=== PATIENT | female | born 1980 | race Caucasian/White ===

== ENCOUNTER → 2018-01-16 | Outpatient (CLI) | payer BC ==
[2018-01-16 13:54] VITALS: BP 135/81; PULSE 88; RESP 16; TEMP 98.7; BMI 36.5
--- NOTE | 2018-01-16 15:01 | P.HPBAR ---
Bariatric H&P - History & Physicial H&P Date: 01/16/18 History & Physicial: Visit/CC: Having problems with band Patient initial contact: Initial weight: 11.34 kg Initial weight in pounds: 25.00 Height: 5 ft 7 in Initial BMI: 3.9 Last weight: Current weight: 105.687 kg Current weight in pounds: 233.00 Current BMI: 36.5 [place] body weight (based on NIH guidelines): 61.235 kg Excess body weight loss: The patient is a 38 year-old F who presents for Bariatric Assessment. Patient presents today for LAP-BAND follow-up. She states she's had no obstruction. Past Medical History Past Medical History: GERD/Reflux History of Any Multi-Drug Resistant Organisms: MRSA Year Discovered:: unknown MDRO Source:: lap band port site Past Surgical History: Bariatric Surgery, Orthopedic Surgery Additional Past Surgical History / Comment(s): right foot surgery, lap band 004 panniculectomy 2009 Past Anesthesia/Blood Transfusion Reactions: No Reported Reaction Smoking Status: Current every day smoker Surgical - Exam Vital Signs Temp Pulse Resp BP 98.7 F 88 16 135/81 01/16/18 13:48 01/16/18 13:48 01/16/18 13:48 01/16/18 13:48 - General well developed, no distress - Eyes PERRL - ENT normal pinna - Neck no masses - Respiratory normal expansion - Cardiovascular Rhythm: regular - Abdomen Abdomen: soft, non tender - Genitourinary normal external genitalia Bariatric Assessment & Plan Plan: LAP-BAND port malfunction. Patient LAP-BAND was accessed. There is no fluid in the band. She'll be scheduled for LAP-BAND port replacement. Bariatric Checklist Checklist: Plan: Checklist: EGD: 1. Hiatal hernia: 2. H. Pylori: HgbA1c: Vitamin D: Smoking: Current every day smoker Primary care physician referral: Psychiatry clearance: Cardiology clearance: Sleep study: Diet journal: VTE risk score: VTE risk level: Rehab needs at discharge:
== END | disposition home or self-care (01) ==
LOC: BARWHC3 13:19
PROVIDERS: ATTEND Surgery
DX: Z46.51 Encounter for fitting and adjustment of gastric lap band (principal); K95.09 Other complications of gastric band procedure; K21.9 Gastro-esophageal reflux disease without esophagitis; F17.200 Nicotine dependence, unspecified, uncomplicated; Z98.84 Bariatric surgery status; Z98.890 Other specified postprocedural states
CPT/HCPCS: 99212

== ENCOUNTER → 2018-02-06 | Outpatient (CLI) | payer BC ==
[2018-02-06 16:11] VITALS: BP 135/78; PULSE 98; RESP 16; TEMP 98.4; BMI 37.5
--- NOTE | 2018-02-06 16:36 | P.HPBAR ---
Bariatric H&P - History & Physicial H&P Date: 02/06/18 History & Physicial: Visit/CC: sleeve consult/consent/PAT lab order Patient initial contact: Initial weight: 11.34 kg Initial weight in pounds: 25.00 Height: 5 ft 7 in Initial BMI: 3.9 Last weight: Current weight: 108.908 kg Current weight in pounds: 240.10 Current BMI: 37.5 [place] body weight (based on NIH guidelines): 61.235 kg Excess body weight loss: The patient is a 38 year-old F who presents for Bariatric Assessment. The patient presents today for preoperative sleeve gastrectomy constipation. Patient has a malfunctioning LAP-BAND system due to a broken LAP-BAND port. She is off the undergo removal LAP-BAND and conversion sleeve gastrectomy. I had lengthy discussions patient regarding risks of surgery including possible gastric perforation, sleeve leak, obstruction and reflux. Patient is morbidly obese with BMI 38. Past Medical History Past Medical History: GERD/Reflux History of Any Multi-Drug Resistant Organisms: MRSA Year Discovered:: unknown MDRO Source:: lap band port site Past Surgical History: Bariatric Surgery, Orthopedic Surgery Additional Past Surgical History / Comment(s): right foot surgery, lap band 2004 panniculectomy 2009 Past Anesthesia/Blood Transfusion Reactions: No Reported Reaction Additional Past Anesthesia/Blood Transfusion Reaction / Comm: No transfusion to date Past Psychological History: No Psychological Hx Reported Smoking Status: Current every day smoker Past Alcohol Use History: None Reported Additional Past Alcohol Use History / Comment(s): 1/2 ppd x 20 years Past Drug Use History: None Reported Surgical - Exam Vital Signs Temp Pulse Resp BP 98.4 F 98 16 135/78 02/06/18 15:57 02/06/18 15:57 02/06/18 15:57 02/06/18 15:57 - General well developed, no distress - Eyes PERRL - ENT normal pinna - Neck no masses - Respiratory normal expansion - Cardiovascular Rhythm: regular - Abdomen Abdomen: soft, non tender Bariatric Assessment & Plan Plan: Status post LAP-BAND system failure. Morbid obesity. Patient will be scheduled for sleeve gastric. She'll undergo preoperative EGD. Bariatric Checklist Checklist: Plan: Checklist: EGD: 1. Hiatal hernia: 2. H. Pylori: HgbA1c: Vitamin D: Smoking: Current every day smoker Primary care physician referral: Lux Bedolla ([place]) Psychiatry clearance: Cardiology clearance: Sleep study: Diet journal: VTE risk score: VTE risk level: Rehab needs at discharge:
== END | disposition home or self-care (01) ==
LOC: BARWHC3 15:51
PROVIDERS: ATTEND Surgery
DX: Z48.815 Encounter for surgical aftercare following surgery on the digestive system (principal); E66.01 Morbid (severe) obesity due to excess calories; Z98.84 Bariatric surgery status; F17.200 Nicotine dependence, unspecified, uncomplicated; Z68.37 Body mass index [BMI] 37.0-37.9, adult
CPT/HCPCS: 99211

== ENCOUNTER 2018-02-10 10:02 | Day surgery (SDC) | payer BC ==
[2018-02-08 11:43] VITALS: BMI 37.5
[~2018-02-10 10:02] MED LIST: LACTATED RINGERS 1,000 ML IV SCH
[2018-02-10 10:27] VITALS: RESP 16; TEMP 97.7
[2018-02-10] MEDS ORDERED: LIDOCAINE 1% 20 ML VIAL (10MG/ML) FOR IV START INTRADERMA ONE (10:32)
[2018-02-10] MEDS ORDERED: PROPOFOL 10 MG/ML 20 ML VIAL IV ONE (11:29)
--- NOTE | 2018-02-10 11:35 | P.GSHP ---
History of Present Illness H&P Date: 02/10/18 Chief Complaint: GERD, morbid obesity This is a 38-year-old female who presents today for EGD. She's had issues with GERD. Patient will obesity BMI 38. Patient's upcoming conversion sleeve gastrectomy. Past Medical History Past Medical History: GERD/Reflux Additional Past Medical History / Comment(s): enlarged thryoid-no rx, occ heartburn, History of Any Multi-Drug Resistant Organisms: MRSA Date of last positivie culture/infection: unknown MDRO Source:: lap band port site Past Surgical History: Bariatric Surgery, Orthopedic Surgery Additional Past Surgical History / Comment(s): right foot surgery, lap band 2004 panniculectomy 2009 Past Anesthesia/Blood Transfusion Reactions: No Reported Reaction Additional Past Anesthesia/Blood Transfusion Reaction / Comment(s): No transfusion to date Additional Past Alcohol Use History / Comment(s): 1/2 ppd x 20 years - Past Family History Mother Family Medical History: No Reported History Medications and Allergies Home Medications Medication Instructions Recorded Confirmed Type No Known Home Medications [No 01/12/18 02/10/18 History Known Home Medications] Allergies Allergy/AdvReac Type Severity Reaction Status Date / Time No Known Allergies Allergy Verified 02/10/18 10:16 Surgical - Exam Vital Signs Temp Pulse Resp BP Pulse Ox 97.7 F 83 16 118/82 97 02/10/18 10:26 02/10/18 10:26 02/10/18 10:26 02/10/18 10:26 02/10/18 10:26 - General well developed, no distress - Eyes PERRL - ENT normal pinna - Neck no masses - Respiratory normal expansion - Cardiovascular Rhythm: regular - Abdomen Abdomen: soft, non tender Assessment and Plan Assessment: GERD, obesity. We'll perform EGD.
--- NOTE | 2018-02-10 11:41 | P.OP ---
Date of Procedure: 02/10/18 Preoperative Diagnosis: GERD, morbid obesity Postoperative Diagnosis: GERD Antral gastritis Mild obesity BMI 37 Procedure(s) Performed: EGD Anesthesia: MAC Surgeon: Mati Forde Pathology: other (Antrum) Condition: stable Disposition: PACU Description of Procedure: The patient's placed on the endoscopy table in the lateral position. She received IV sedation. The gastroscope placed oropharynx passed in the esophagus and into the stomach. Scope was then placed through the pylorus. The first and second portion of the duodenum appeared normal. The scope was then brought back the antrum and this was mildly inflamed. A biopsy was performed. Scope was unretroflexed and remainder stomach appeared normal. Patient agrees placed Yani device this was without evidence of inflammation erosion. The GE junction was at 40 cm the distal esophagus appeared mildly inflamed. The proximal esophagus appeared normal. Scope was withdrawn for patient.
[2018-02-10 12:03] VITALS: BP 122/88; PULSE 83
== END 2018-02-10 12:20 | disposition home or self-care (01) ==
LOC: ORWHC2ENDO 10:02
PROVIDERS: ATTEND Surgery
DX: K29.50 Unspecified chronic gastritis without bleeding (principal); K21.9 Gastro-esophageal reflux disease without esophagitis; E66.01 Morbid (severe) obesity due to excess calories; Z68.37 Body mass index [BMI] 37.0-37.9, adult; E04.9 Nontoxic goiter, unspecified; Z98.84 Bariatric surgery status; Z86.14 Personal history of Methicillin resistant Staphylococcus aureus infection; Z72.0 Tobacco use
CPT/HCPCS: 81025; 88305; 43239; J2704

== ENCOUNTER → 2018-02-13 | Outpatient (CLI) | payer BC ==
[2018-02-13 13:37] VITALS: BMI 37.6
== END | disposition home or self-care (01) ==
LOC: BARWHC3 08:58
PROVIDERS: ATTEND Surgery
DX: E66.01 Morbid (severe) obesity due to excess calories (principal); Z71.3 Dietary counseling and surveillance; Z68.37 Body mass index [BMI] 37.0-37.9, adult
CPT/HCPCS: 97804

== ENCOUNTER → 2018-02-13 | Outpatient (CLI) | payer BC ==
[2018-02-13 13:11] LABS: Basophils % (A) 0 %; Eosinophils # (A) 0.4 k/uL (0-0.7); Eosinophils % (A) 4 %; HGB 14.7 gm/dL (11.4-16.0); Lymphocytes # (A) 1.7 k/uL (1.0-4.8); Lymphocytes % (A) 19 %; MCH 29.7 pg (25.0-35.0); MCHC 33.5 g/dL (31.0-37.0); MCV 88.8 fL (80.0-100.0); Mean Platelet Volume 7.9; Monocytes # (A) 0.4 k/uL (0-1.0); Monocytes % (A) 4 %; Neutrophils # (A) 6.4 k/uL (1.3-7.7); Neutrophils % (A) 71 %; Platelet Count 235 k/uL (150-450); RBC 4.96 m/uL (3.80-5.40); RDW 12.8 % (11.5-15.5)
[2018-02-13 13:28] LABS: ALT 40 U/L (9-52); AST 25 U/L (14-36); Albumin 3.6 g/dL (3.5-5.0); Alkaline Phosphatase 63 U/L (38-126); Anion Gap 7 mmol/L; Blood Urea Nitrogen 9 mg/dL (7-17); Calcium 9.5 mg/dL (8.4-10.2); Carbon Dioxide 31 mmol/L (22-30); Chloride 103 mmol/L (98-107); Glucose 115 mg/dL (74-99); Sodium 141 mmol/L (137-145); Total Bilirubin 0.3 mg/dL (0.2-1.3); Total Protein 6.3 g/dL (6.3-8.2)
== END | disposition home or self-care (01) ==
LOC: LABPAT 12:39
PROVIDERS: ATTEND Surgery
DX: Z01.812 Encounter for preprocedural laboratory examination (principal)
CPT/HCPCS: 36415; 80053; 85025; 93005

== ENCOUNTER 2018-03-03 06:51 | Inpatient (IN) | payer BC ==
[~2018-03-03 06:51] MED LIST changes: +DEXAMETHASONE SOD PHOSPHATE 10 MG/ML 1 ML VIAL IV ONE; +ENOXAPARIN 40 MG/0.4 ML SYRINGE SQ ONE; +ONDANSETRON 4 MG/2 ML VIAL IVP ONE; +SCOPOLAMINE 1.5MG/72HR PATCH TRANSDERM ONE; +ceFAZolin IN SWFI 2 GM/20 ML SYRINGE IVP ONE
[2018-03-03] MEDS ORDERED: METHYLENE BLUE 30 MG in DEXTROSE 5% IN WATER 500 ML IRRIGATION ONE ×2 (07:12)
[2018-03-03] MEDS: fentaNYL (PF) 50 MCG/ML 2 ML AMP IV PRN ×4 (07:40→11:33)
[2018-03-03] MEDS: MIDAZOLAM 2 MG/2 ML VIAL IV PRN ×2 (07:40→07:56)
--- NOTE | 2018-03-03 07:49 | P.GSHP ---
History of Present Illness H&P Date: 03/03/18 Chief Complaint: Morbid obesity This is a 38-year-old female who has had lifetime process previously. Her BMI is 37. Patient has a history of LAP-BAND surgery. She has had chronic dysphagia related to her band. Resents today for removal band and conversion sleeve gastrectomy. Past Medical History Past Medical History: GERD/Reflux History of Any Multi-Drug Resistant Organisms: MRSA Date of last positivie culture/infection: unknown MDRO Source:: lap band port site Past Surgical History: Bariatric Surgery, Orthopedic Surgery Additional Past Surgical History / Comment(s): right foot surgery, lap band 2004 panniculectomy 2008 Past Anesthesia/Blood Transfusion Reactions: No Reported Reaction Additional Past Anesthesia/Blood Transfusion Reaction / Comment(s): No transfusion to date Smoking Status: Current every day smoker - Past Family History Mother Family Medical History: No Reported History Medications and Allergies Home Medications Medication Instructions Recorded Confirmed Type No Known Home Medications [No 01/12/18 03/03/18 History Known Home Medications] Allergies Allergy/AdvReac Type Severity Reaction Status Date / Time No Known Allergies Allergy Verified 03/03/18 07:05 Surgical - Exam Vital Signs Temp Pulse Resp BP Pulse Ox 992 F H 92 16 135/81 96 03/03/18 07:14 03/03/18 07:14 03/03/18 07:14 03/03/18 07:14 03/03/18 07:14 - General well developed, no distress - Eyes PERRL - ENT normal pinna - Neck no masses - Respiratory normal expansion - Cardiovascular Rhythm: regular - Abdomen Abdomen: soft, non tender Assessment and Plan Assessment: Morbid obesity with LAP-BAND dysfunction. Patient will undergo removal of LAP- BAND and conversion sleeve gastrectomy.
[2018-03-03] MEDS ORDERED: NEOSTIGMINE 1 MG/ML 10 ML VIAL ONE (07:55)
[2018-03-03] MEDS ORDERED: GLYCOPYRROLATE 0.2 MG/ML 2 ML VIAL ONE (07:55)
[2018-03-03] MEDS ORDERED: SUCCINYLCHOLINE CHLORIDE 100 MG/5 ML SYR IV ONE (07:55)
[2018-03-03] MEDS ORDERED: DEXAMETHASONE SOD PHOS (MDV) 100 MG/10 ML VIAL ONE (07:55)
[2018-03-03] MEDS ORDERED: KETOROLAC 30 MG/ML 1 ML VIAL ONE (07:55)
[2018-03-03] MEDS ORDERED: fentaNYL (PF) 50 MCG/ML 2 ML AMP ONE (07:55)
[2018-03-03] MEDS ORDERED: PROPOFOL 10 MG/ML 20 ML VIAL IV ONE (07:55)
--- NOTE | 2018-03-03 07:56 | P.ONQ ---
Anesthesiology Proc Note - PNB - Peripheral Nerve Block Performed Right Transversus Abdominis Single Procedure Start Time: 07:40 Procedure Stop Time: 07:48 Indication: Acute Post-Operative Pain Specifically requested for management of pain by DrZoila: Mati Forde Sedation Type: Sedate with meaningful contact maintained Preparation: Sterile Prep Position: Supine Needle Types: Other (see comment) (PUJUNK) Needle Size: 100mm (4") Needle Gauge: 21 Technique: Ultrasound (0,25 % ropivacaine ) Blood Aspirated: No Pain Paresthesia on Injection Noted: No Resistance on Injection: Normal (0,25 % ropivacaine 20 ml) Events: Uneventful and Well Tolerated
--- NOTE | 2018-03-03 07:58 | P.ONQ ---
Anesthesiology Proc Note - PNB - Peripheral Nerve Block Performed Left Transversus Abdominis Single Time Out Performed: Yes Procedure Start Time: 07:48 Procedure Stop Time: 07:56 Indication: Acute Post-Operative Pain Specifically requested for management of pain by DrZoila: Mati Forde Sedation Type: Sedate with meaningful contact maintained Preparation: Sterile Prep Position: Supine (Pujunk) Needle Types: Other (see comment) Needle Size: 100mm (4") Needle Gauge: 21 Technique: Ultrasound (0,25 % ropivacaine 20 ml) Blood Aspirated: No Pain Paresthesia on Injection Noted: No Resistance on Injection: Normal Events: Uneventful and Well Tolerated
[2018-03-03] MEDS ORDERED: BUPIVACAINE (PF) 0.25% 30 ML VIAL SQ ONE (08:28)
[2018-03-03] MEDS ORDERED: MORPHINE SULFATE 4MG/4ML SYRG IVP PRN ×2 (09:55→09:59)
[2018-03-03] MEDS ORDERED: NALOXONE 0.4 MG/ML 1 ML VIAL IV PRN (09:55)
[2018-03-03] MEDS ORDERED: diphenhydrAMINE 50 MG/ML 1 ML VIAL IVP PRN (09:55)
[2018-03-03] MEDS ORDERED: ONDANSETRON 4 MG/2 ML VIAL IVP PRN (09:55)
[2018-03-03] MEDS ORDERED: ONDANSETRON 4 MG/2 ML VIAL IVP ONE ×2 (10:17→10:22)
[2018-03-03] MEDS ORDERED: fentaNYL (PF) 50 MCG/ML 2 ML AMP IVP ONE (10:32)
--- NOTE | 2018-03-03 10:36 | P.OP ---
Date of Procedure: 03/03/18 Preoperative Diagnosis: Morbid obesity LAP-BAND malfunction Postoperative Diagnosis: Morbid obesity LAP-BAND malfunction Procedure(s) Performed: Laparoscopic we will LAP-BAND system Laparoscopic sleeve gastrectomy Anesthesia: JANKI Surgeon: Mati Forde Estimated Blood Loss (ml): 5 Pathology: other (LAP-BAND device) Condition: stable Disposition: PACU Description of Procedure: The patient was placed on the operating room table in the supine position. She received general anesthesia and then was placed in dorsal lithotomy position. Her abdomen was prepped and draped in sterile fashion. The skin incision sites were anesthetized 1% local Xylocaine. The patient had a LAP-BAND system. The LAP-BAND port was placed in the left epigastric position. Using an 11 blade the skin was incised and then the LAP-BAND port was dissected free from some taste tissues. The connecting tube was then cut and the port was removed. And then the skin was incised with an 11 blade in the left lateral position. Using a blade less trocar under direct visualization the peritoneal cavity was entered. The abdomen was insufflated and then a 5 mm laparoscope was placed into the peritoneal cavity. A 5 mm trocar was placed in the right epigastric, and right lateral position. A 15 mm trocar was placed in the supra-umbilical position and another 5 mm trocar was placed in the left lateral position. The left lateral lobe of the liver was retracted. The stomach was visualized. The patient LAP-BAND was visualized. The anterior gastric wall plication was taken down with sharp dissection. Care was taken to identify and preserve the stomach. The band was then withdrawn from stomach and extracted through the 15 mm trocar site. The greater curvature of the stomach was then dissected using the Harmonic scissors. The dissection occurred approximately 5 cm from the pylorus to the level of the left bo. There was no hiatal hernia seen. At this point a 40- Vincentian bougie dilator was placed the oropharynx and passed into the esophagus and into the stomach by the [employer]. The sleeve gastrectomy was performed by using the powered echelon stapler with a seam guard buttress material. Sequential firings of the stapler were performed. The gastric remnant was then brought out through the 15 mm trocar site. The dilator was withdrawn. And a orogastric tube was replaced into the stomach. The stomach was insufflated with 200 mL of methylene blue normal saline. There was no evidence of extravasation. The abdomen was irrigated there is no bleeding seen. The Uziel -Misty device was used to close the 15 mm trocar with 0 Vicryl. Skin was closed with interrupted 3-0 Monocryl sutures once the trochars withdrawn. Dermabond dressing was applied. Patient was sent to recovery in stable condition.
[2018-03-03] MEDS ORDERED: METOCLOPRAMIDE 5 MG/ML 2 ML VIAL IVP ONE (11:06)
[2018-03-03 11:32] VITALS: BMI 36.6
[2018-03-03] MEDS: ALBUTEROL NEBULIZED 2.5 MG/3 ML INHALATION SCH ×3 (12:30→19:30)
[2018-03-03] MEDS: 0.9% NACL WITH KCL 20 MEQ/L 1,000 ML IV SCH ×3 (12:47→22:16)
[2018-03-03] MEDS: AMPICILLIN-SULBACTAM 3 GM in SODIUM CHLORIDE 0.9% 100 ML IVPB SCH ×2 (12:49→17:45)
[2018-03-03] MEDS: KETOROLAC 30 MG/ML 1 ML VIAL IVP SCH ×2 (13:06→17:44)
[2018-03-03] MEDS: SIMETHICONE 40 MG/0.6 ML DROPS 2,000 MG/30 ML BOTTLE PO PRN ×2 (14:13→21:21)
[2018-03-03] MEDS: HYOSCYAMINE ORAL DROPS 1.875 MG/15 ML BOTTLE PO PRN ×2 (14:13→21:21)
--- NOTE | 2018-03-03 15:59 | CONS ---
CONSULTATION REASON FOR CONSULTATION: Advice regarding GERD and other medical issues requested by Dr. Forde. HISTORY OF PRESENT ILLNESS: This 38-year-old woman with a past history of GERD, MRSA, history of bariatric surgery being followed Dr. Fernando in [facility] admitted after laparoscopic sleeve gastrectomy and laparoscopic removal of lap band system for lap band malfunction. There is no history of fever, rigors. No headache, loss of consciousness, chest pain, palpitations, shortness of breath, hematochezia or melena at this time. PAST MEDICAL HISTORY: History of GERD, MRSA, bariatric surgery. MEDICATIONS: Prior to admission include none. ALLERGIES: None. FAMILY HISTORY: No history of heart disease or strokes in the family. SOCIAL HISTORY: History of smoking. No history of alcohol intake. REVIEW OF SYSTEMS: ENT: No diminished hearing or vision. CARDIOVASCULAR: No angina. RESPIRATORY: As mentioned earlier. GI: As mentioned earlier. : No dysuria. NERVOUS SYSTEM: No numbness or weakness. ALLERGY/IMMUNOLOGY: No asthma or hay fever. MUSCULOSKELETAL: As mentioned earlier. HEMATOLOGY/ONCOLOGY: No history of anemia. ENDOCRINE: No history of diabetes or hypothyroidism. CONSTITUTIONAL: As mentioned earlier. DERMATOLOGY: Negative. RHEUMATOLOGY: Negative. PSYCHIATRY: As mentioned earlier. PHYSICAL EXAM: Patient is alert, oriented x3. Pulse is 77, blood pressure 146/83, respiration 16, temp is normal, pulse ox 98% on 2 L. HEENT: Conjunctivae normal. Oral mucosa moist. NECK: No jugular venous distention. No carotid bruit. No lymph node enlargement. CARDIOVASCULAR: S1, S2. RESPIRATORY: Breath sounds diminished in the bases No rhonchi. No crackles. ABDOMEN: Soft, status post surgery. LEGS: No edema. NERVOUS SYSTEM: Higher functions as mentioned earlier. Moves all four limbs. No focal deficits. LYMPHATICS: No lymphadenopathy in the neck, axillae, groin. SKIN: No ulcer, rash or bleeding. LABS: At this time shows: Previous labs reviewed. Current labs not available. ASSESSMENT: 1. Status post laparoscopic sleeve gastrectomy as well as laparoscopic removal of the lap band for lap band malfunction. 2. History of gastroesophageal reflux disease. 3. History of MRSA. 4. History of bariatric surgery. 5. History of degenerative joint disease. 6. History of nicotine dependence. RECOMMENDATIONS AND DISCUSSION: This 38-year-old woman who presented with multiple medical issues at this time I recommend to continue the current medications, continue symptomatic treatment. I recommend DVT prophylaxis. Incentive spirometry. Smoking cessation advised. Closely follow up with primary physician in outpatient setting and further recommendations to follow. Will follow the patient closely. Thank you Dr. Forde, for letting us participate in the care of this patient. MMODL / IJN: [id number] /
[2018-03-03] MEDS ORDERED: METOCLOPRAMIDE 5 MG/ML 2 ML VIAL IVP PRN (16:20)
[2018-03-03] MEDS: NICOTINE 14MG/24HR PATCH TRANSDERM SCH (16:35)
[2018-03-03] MEDS: MORPHINE SULFATE 4 MG/0.8 ML SYRINGE (INJ) IVP PRN ×2 (17:51→22:24)
[2018-03-03] MEDS: FAMOTIDINE 20 MG TAB PO SCH (21:12)
[2018-03-03] MEDS: METOCLOPRAMIDE 5 MG/ML 2 ML VIAL IVP PRN (22:27)
[2018-03-04] MEDS: KETOROLAC 30 MG/ML 1 ML VIAL IVP SCH ×4 (01:23→17:41)
[2018-03-04] MEDS: 0.9% NACL WITH KCL 20 MEQ/L 1,000 ML IV SCH (04:57)
[2018-03-04] MEDS: METOCLOPRAMIDE 5 MG/ML 2 ML VIAL IVP PRN (05:34)
[2018-03-04] MEDS: SIMETHICONE 40 MG/0.6 ML DROPS 2,000 MG/30 ML BOTTLE PO PRN ×2 (05:34→18:46)
[2018-03-04] MEDS: HYOSCYAMINE ORAL DROPS 1.875 MG/15 ML BOTTLE PO PRN ×2 (05:34→22:02)
[2018-03-04] MEDS: ALBUTEROL NEBULIZED 2.5 MG/3 ML INHALATION SCH ×4 (06:50→21:11)
[2018-03-04 07:17] LABS: Basophils % (A) 0 %; Eosinophils # (A) 0.1 k/uL (0-0.7); Eosinophils % (A) 1 %; HCT 39.6 % (34.0-46.0); HGB 13.4 gm/dL (11.4-16.0); Lymphocytes # (A) 1.9 k/uL (1.0-4.8); Lymphocytes % (A) 11 %; MCH 29.7 pg (25.0-35.0); MCHC 33.8 g/dL (31.0-37.0); MCV 87.7 fL (80.0-100.0); Monocytes # (A) 1.1 k/uL (0-1.0); Monocytes % (A) 6 %; Neutrophils # (A) 13.6 k/uL (1.3-7.7); Neutrophils % (A) 80 %; Platelet Count 239 k/uL (150-450); RBC 4.51 m/uL (3.80-5.40)
[2018-03-04 07:19] LABS: Anion Gap 11 mmol/L; Blood Urea Nitrogen 17 mg/dL (7-17); Calcium 8.3 mg/dL (8.4-10.2); Carbon Dioxide 24 mmol/L (22-30); Chloride 107 mmol/L (98-107); Magnesium 1.8 mg/dL (1.6-2.3); Potassium 4.4 mmol/L (3.5-5.1); Sodium 142 mmol/L (137-145)
--- NOTE | 2018-03-04 08:40 | FL ---
EXAMINATION TYPE: FL UGI DATE OF EXAM ORDERED: 03/04/2018 8:34 AM HISTORY: The patient had her lap band removed and a gastric sleeve procedure. COMPARISON: None. FINDINGS: The patient drank contrast with ease. There was moderate holdup of contrast at the GE junc tion. There is no extravasation. The ligament of Treitz is in the normal location. There is no signif icant free air. IMPRESSION: STATUS POST GASTRIC SLEEVE PROCEDURE
[2018-03-04] MEDS ORDERED: PANTOPRAZOLE 40 MG/10 ML VIAL IV SCH (09:00)
[2018-03-04] MEDS: 1: MVI, ADULT NO.4 WITH VIT K 10 ML, THIAMINE 100 MG, FOLIC ACID 1 MG, POTASSIUM CHLORID IV SCH ×12 (09:09→18:47)
[2018-03-04] MEDS: ENOXAPARIN 40 MG/0.4 ML SYRINGE SQ SCH ×2 (09:10→22:02)
[2018-03-04] MEDS: NICOTINE 14MG/24HR PATCH TRANSDERM SCH (09:10)
[2018-03-04] MEDS: FAMOTIDINE 20 MG TAB PO SCH ×2 (09:10→22:02)
--- NOTE | 2018-03-04 12:43 | P.PN ---
Subjective Progress Note Date: 03/04/18 Patient postop day #1 gastric surgery for morbid obesity. Patient's upper GI study reveals some moderate : A contrast at the GE junction. No extravasation noted. Patient's white blood cell count today is 17. Patient is resting comfortably. Objective - Vital Signs Vital signs: Vital Signs Temp 99.5 F 03/04/18 09:00 Pulse 80 03/04/18 11:00 Resp 18 03/04/18 09:00 BP 142/91 03/04/18 09:00 Pulse Ox 97 03/04/18 10:00 Intake & Output 03/03/18 03/04/18 03/04/18 18:59 06:59 18:59 Intake Total 1500 1250 Output Total 310 Balance 1190 1250 Weight 106.141 kg Intake: IV 1500 Intake, IV Titration 1200 Amount 0.9% NaCl with KCl 20 Meq 1200 /l 1,000 ml @ 150 mls/hr IV .Q6H40M ALFRED Rx#: [id number] Oral 50 Output: Urine 300 Estimated Blood Loss 10 Other: Voiding Method Toilet Toilet # Voids 2 3 - Constitutional General appearance: Present: cooperative - Respiratory Details: Decreased breath sounds at the bases - Cardiovascular Rhythm: regular Heart sounds: normal: S1, S2 - Gastrointestinal Gastrointestinal Comment(s): Incisions clean and dry - Psychiatric Psychiatric: Present: A&O x's 3, appropriate affect, intact judgment & insight - Labs CBC & Chem 7: 03/04/18 06:40 03/04/18 06:40 Labs: Abnormal Lab Results - Last 24 Hours (Table) 03/04/18 03/04/18 Range/Units 06:40 06:40 WBC 17.0 H (3.8-10.6) k/uL Neutrophils # 13.6 H (1.3-7.7) k/uL Monocytes # 1.1 H (0-1.0) k/uL Calcium 8.3 L (8.4-10.2) mg/dL Assessment and Plan Assessment: Impression/plan: 1. Morbid obesity with lap band dysfunction status post gastric sleeve postop day #1 2. Postoperative leukocytosis 3. Moderate amount of contrast at GE junction, suspect related to postop swelling Plan: 1. IV hydration 2. Repeat CBC in a.m.
--- NOTE | 2018-03-04 13:42 | PN ---
PROGRESS NOTE DATE OF SERVICE: This 38-year-old woman was admitted after laparoscopic sleeve gastrectomy. She is complaining of heartburn last night. No chest pain. No palpitations. No fever. On exam, alert and oriented x3. Pulse 71, blood pressure 142/91, respiration 18, temperature 99.4, pulse ox 97% on room air. HEENT: Conjunctivae normal. NECK: No jugular venous distention. CARDIOVASCULAR SYSTEM: S1, S2 muffled. RESPIRATORY SYSTEM: Breath sounds diminished at the bases. No rhonchi. No crackles. ABDOMEN: Soft, status post surgery. LEGS: No edema. No swelling. NERVOUS SYSTEM: No focal deficit. LABS: WBC 17. ASSESSMENT: 1. Status post laparoscopic sleeve gastrectomy with laparoscopic removal of lap band for lap band malfunction. 2. History of gastroesophageal reflux disease. 3. Increased white count, possibly reactive. 4. History of methicillin-resistant Staphylococcus aeruginosa. 5. History of bariatric surgery. 6. History of degenerative joint disease. 7. History of nicotine dependence. RECOMMENDATIONS AND DISCUSSION: I recommend to continue current medications, continue symptomatic treatment. Proton pump inhibitors. DVT prophylaxis. Continue the rest of the medications. Closely follow with Surgery. Further recommendations to follow. MMODL / IJN: [id number] /
[2018-03-04 16:54] LABS: Glucose,Whole Blood 110 mg/dL (75-99)
[2018-03-04 17:19] VITALS: RESP 16
[2018-03-04] MEDS: MORPHINE SULFATE 4 MG/0.8 ML SYRINGE (INJ) IVP PRN (18:46)
[2018-03-04] MEDS: PANTOPRAZOLE 40 MG/10 ML VIAL IV SCH (22:03)
[2018-03-05] MEDS: KETOROLAC 30 MG/ML 1 ML VIAL IVP SCH ×2 (01:17→06:17)
[2018-03-05] MEDS: 1: MVI, ADULT NO.4 WITH VIT K 10 ML, THIAMINE 100 MG, FOLIC ACID 1 MG, POTASSIUM CHLORID IV SCH ×6 (06:17)
[2018-03-05 06:42] LABS: Glucose,Whole Blood 92 mg/dL (75-99)
[2018-03-05 07:20] LABS: Basophils % (A) 0 %; Eosinophils # (A) 0.3 k/uL (0-0.7); Eosinophils % (A) 3 %; HCT 34.4 % (34.0-46.0); HGB 11.7 gm/dL (11.4-16.0); Lymphocytes # (A) 1.8 k/uL (1.0-4.8); Lymphocytes % (A) 19 %; MCH 29.9 pg (25.0-35.0); Mean Platelet Volume 8.7; Monocytes # (A) 0.6 k/uL (0-1.0); Monocytes % (A) 6 %; Neutrophils # (A) 6.7 k/uL (1.3-7.7); Neutrophils % (A) 70 %; Platelet Count 167 k/uL (150-450); RBC 3.91 m/uL (3.80-5.40); WBC 9.6 k/uL (3.8-10.6)
[2018-03-05] MEDS ORDERED: MORPHINE ORAL SOLN 10 MG/5 ML CUP PO PRN (07:38)
[2018-03-05 08:11] VITALS: BP 120/74; TEMP 98.5
[2018-03-05] MEDS: ALBUTEROL NEBULIZED 2.5 MG/3 ML INHALATION SCH ×2 (08:17→12:03)
[2018-03-05 08:21] VITALS: PULSE 80
[2018-03-05] MEDS ORDERED: ACETAMINOPHEN TAB 325 MG TAB PO PRN (08:52)
[2018-03-05] MEDS: FAMOTIDINE 20 MG TAB PO SCH (09:41)
[2018-03-05] MEDS: PANTOPRAZOLE 40 MG/10 ML VIAL IV SCH (09:43)
[2018-03-05] MEDS: ENOXAPARIN 40 MG/0.4 ML SYRINGE SQ SCH ×2 (09:43→09:52)
[2018-03-05] MEDS: NICOTINE 14MG/24HR PATCH TRANSDERM SCH (09:43)
--- NOTE | 2018-03-05 12:00 | P.PN ---
Subjective Progress Note Date: 03/05/18 Patient postop day #2 gastric surgery for morbid obesity. Patient is tolerating clear liquids. Patient is white count is decreased to 9.6. Patient states she is feeling well today. Objective - Vital Signs Vital signs: Vital Signs Temp 98.5 F 03/05/18 08:09 Pulse 80 03/05/18 08:29 Resp 16 03/05/18 08:23 BP 120/74 03/05/18 08:09 Pulse Ox 96 03/05/18 08:09 Intake & Output 03/04/18 03/05/18 03/05/18 18:59 06:59 18:59 Intake Total 1000 2621.2 Balance 1000 2621.2 Intake: Intake, IV Titration 1000 2421.2 Amount 0.9% NaCl with KCl 20 Meq 400 /l 1,000 ml @ 100 mls/hr IV .BY DURATION ALFRED Rx#: [id number] 0.9% NaCl with KCl 20 Meq 600 1000 /l 1,000 ml @ 150 mls/hr IV .Q6H40M ALFRED Rx#: [id number] Mvi, Adult No.4 with Vit 400 1021.2 K 10 ml Thiamine 100 mg Folic Acid 1 mg Potassium Chloride 20 meq In Sodium Chloride 0.9% 1, 000 ml @ 100 mls/hr IV . BY DURATION ALFRED Rx#: [id number] Oral 200 Other: Voiding Method Toilet Toilet # Voids 3 - Constitutional General appearance: Present: cooperative - Respiratory Details: Mildly decreased at bases Respiratory: bilateral: CTA - Cardiovascular Rhythm: regular Heart sounds: normal: S1, S2 - Gastrointestinal Gastrointestinal Comment(s): Incisions clean and dry General gastrointestinal: Present: decreased bowel sounds, soft - Psychiatric Psychiatric: Present: A&O x's 3, appropriate affect, intact judgment & insight - Labs CBC & Chem 7: 03/05/18 06:15 03/04/18 06:40 Labs: Abnormal Lab Results - Last 24 Hours (Table) 03/04/18 Range/Units 16:52 POC Glucose (mg/dL) 110 H (75-99) mg/dL Assessment and Plan Assessment: Impression/plan: 1. Morbid obesity with lap band dysfunction status post gastric sleeve postop day #2 2. Postoperative leukocytosis resolved 3. Tolerating clear liquids Plan: 1. Discharge home
--- NOTE | 2018-03-05 12:01 | P.DS ---
Providers Date of admission: 03/03/18 06:51 Attending physician: Mati Forde Consults: 03/03/18 09:55 Consult Physician Routine Consulting Provider: Francheska Irwin Consult Reason/Comments: med manage Do you want consulting provider notified?: Yes Primary care physician: Lux Bedolla Plan - Discharge Summary Discharge Rx Participant: No New Discharge Prescriptions: New Bisacodyl [Dulcolax] 5 mg PO DAILY PRN #10 tablet. PRN Reason: Constipation Ondansetron Odt [Zofran Odt] 4 mg PO Q8HR PRN #9 tab PRN Reason: Nausea Simethicone 40 mg/0.6 ml Drops [Mylicon Drops] 40 mg PO PCHS PRN #30 ml PRN Reason: Gas Docusate [Colace] 100 mg PO BID #20 capsule HYDROcodone/APAP 7.5-325MG [[place] 7.5] 1 each PO Q4H PRN #30 tab PRN Reason: Pain Omeprazole 40 mg PO DAILY #60 capsule. Discharge Medication List Bisacodyl [Dulcolax] 5 mg PO DAILY PRN #10 tablet. 03/03/18 [Rx] Docusate [Colace] 100 mg PO BID #20 capsule 03/03/18 [Rx] HYDROcodone/APAP 7.5-325MG [[place] 7.5] 1 each PO Q4H PRN #30 tab 03/03/18 [Rx] Omeprazole 40 mg PO DAILY #60 capsule. 03/03/18 [Rx] Ondansetron Odt [Zofran Odt] 4 mg PO Q8HR PRN #9 tab 03/03/18 [Rx] Simethicone 40 mg/0.6 ml Drops [Mylicon Drops] 40 mg PO PCHS PRN #30 ml [Rx] Follow up Appointment(s)/Referral(s): [facility],. [NON-STAFF] - 1 Week Activity/Diet/Wound Care/Special Instructions: As per Dr. Forde Do not drive until seen postoperatively Do not lift anything over 10 pounds Discharge Disposition: HOME SELF-CARE
--- NOTE | 2018-03-05 12:18 | P.DS ---
Providers Date of admission: 03/03/18 06:51 Attending physician: Mati Forde Consults: 03/03/18 09:55 Consult Physician Routine Consulting Provider: Francheska Irwin Consult Reason/Comments: med manage Do you want consulting provider notified?: Yes Primary care physician: Lux Bedolla Plan - Discharge Summary Discharge Rx Participant: No New Discharge Prescriptions: New Bisacodyl [Dulcolax] 5 mg PO DAILY PRN #10 tablet. PRN Reason: Constipation Ondansetron Odt [Zofran Odt] 4 mg PO Q8HR PRN #9 tab PRN Reason: Nausea Simethicone 40 mg/0.6 ml Drops [Mylicon Drops] 40 mg PO PCHS PRN #30 ml PRN Reason: Gas Docusate [Colace] 100 mg PO BID #20 capsule HYDROcodone/APAP 7.5-325MG [[place] 7.5] 1 each PO Q4H PRN #30 tab PRN Reason: Pain Omeprazole 40 mg PO DAILY #60 capsule. Discharge Medication List Bisacodyl [Dulcolax] 5 mg PO DAILY PRN #10 tablet. 03/03/18 [Rx] Docusate [Colace] 100 mg PO BID #20 capsule 03/03/18 [Rx] HYDROcodone/APAP 7.5-325MG [[place] 7.5] 1 each PO Q4H PRN #30 tab 03/03/18 [Rx] Omeprazole 40 mg PO DAILY #60 capsule. 03/03/18 [Rx] Ondansetron Odt [Zofran Odt] 4 mg PO Q8HR PRN #9 tab 03/03/18 [Rx] Simethicone 40 mg/0.6 ml Drops [Mylicon Drops] 40 mg PO PCHS PRN #30 ml [Rx] Follow up Appointment(s)/Referral(s): [facility] [NON-STAFF] - 1 Week Activity/Diet/Wound Care/Special Instructions: As per Dr. Forde Do not drive until seen postoperatively Do not lift anything over 10 pounds Discharge Disposition: HOME SELF-CARE
--- NOTE | 2018-03-05 20:04 | PN ---
PROGRESS NOTE DATE OF SERVICE: 03/05/2018 This 38-year-old woman is admitted with laparoscopic sleeve gastrectomy lap band malfunction, is improving significantly. No chest pain. No palpitations. No fever. EXAM: Alert and oriented x3. Pulse is 83, blood pressure 120/77, respirations 16, temperature 98.4, pulse ox 98% on room air. HEENT: Conjunctivae normal. Neck: No jugular venous distention. Cardiovascular: S1, S2 muffled. Respiratory: Breath sounds diminished in the bases. Scattered rhonchi and crackles. Abdomen is soft, nontender. Legs: No edema. No swelling. Central nervous system: No focal deficits. LAB: WBC 10.6. ASSESSMENT: 1. Status post laparoscopic sleeve gastrectomy with laparoscopic removal of the lap band for lap band malfunction. 2. Gastroesophageal reflux disease. 3. Increased WBC, reactive, improved. 4. History of Methicillin-resistant Staphylococcus aureus. 5. History of bariatric surgery. RECOMMENDATIONS AND DISCUSSION: Recommend to continue current medication, continue to monitor. Symptomatic treatment. Otherwise at this time I will recommend continue with the home medications. Incentive spirometry. The rest of the recommendations per surgery. MMODL / IJN: [id number] / MTDD
== END 2018-03-05 11:55 | disposition home or self-care (01) | DRG 328 ==
LOC: 2ORMAIN 06:51 → 3SUR 10:00
PROVIDERS: ADMIT Surgery; ATTEND Surgery
PROC: 0DB64Z3 Excision of Stomach, Percutaneous Endoscopic Approach, Vertical (ICD-10-PCS; principal; 2018-03-03 08:00)
PROC: 0DP64CZ Removal of Extraluminal Device from Stomach, Percutaneous Endoscopic Approach (ICD-10-PCS; 2018-03-03 08:00)
DX: K95.09 Other complications of gastric band procedure (principal); E66.01 Morbid (severe) obesity due to excess calories; K21.9 Gastro-esophageal reflux disease without esophagitis; M19.90 Unspecified osteoarthritis, unspecified site; D72.829 Elevated white blood cell count, unspecified; F17.210 Nicotine dependence, cigarettes, uncomplicated; R13.10 Dysphagia, unspecified; Z98.84 Bariatric surgery status; Z71.6 Tobacco abuse counseling; Z86.14 Personal history of Methicillin resistant Staphylococcus aureus infection; Z68.37 Body mass index [BMI] 37.0-37.9, adult
CPT/HCPCS: 74240; 80051; 82310; 82565; 83735; 84100; 84520; 85025; 88307; 94640; 94760

== ENCOUNTER → 2018-03-13 | Outpatient (CLI) | payer BC ==
[2018-03-13 13:27] VITALS: BP 115/74; PULSE 77; RESP 15; TEMP 98.9; BMI 35.4
--- NOTE | 2018-03-13 15:51 | P.HPBAR ---
Bariatric H&P - History & Physicial H&P Date: 03/13/18 History & Physicial: Visit/CC: sleeve f/u (sx 03/03/18) Patient initial contact: Initial weight: 11.34 kg Initial weight in pounds: 25.00 Height: 5 ft 7 in Initial BMI: 3.9 Last weight: Current weight: 102.739 kg Current weight in pounds: 226.50 Current BMI: 35.4 [place] body weight (based on NIH guidelines): 61.235 kg Excess body weight loss: The patient is a 38 year-old F who presents for Bariatric Assessment. Patient presents today for her first postoperative visit from sleeve gastrectomy. She has no real complaints. She's had some mild GERD. Past Medical History Past Medical History: GERD/Reflux History of Any Multi-Drug Resistant Organisms: MRSA Year Discovered:: unknown MDRO Source:: lap band port site Past Surgical History: Bariatric Surgery, Orthopedic Surgery Additional Past Surgical History / Comment(s): right foot surgery, lap band 2003 (removed 03-03-18 and revised to gastric sleeve) panniculectomy 2008 Past Anesthesia/Blood Transfusion Reactions: No Reported Reaction Additional Past Anesthesia/Blood Transfusion Reaction / Comm: No transfusion to date Past Psychological History: No Psychological Hx Reported Smoking Status: Current every day smoker Past Alcohol Use History: None Reported Additional Past Alcohol Use History / Comment(s): 1/2 ppd x 20 years Past Drug Use History: None Reported - Past Family History Mother Family Medical History: No Reported History Surgical - Exam Vital Signs Temp Pulse Resp BP 98.9 F 77 15 115/74 03/13/18 13:10 03/13/18 13:10 03/13/18 13:10 03/13/18 13:10 - General well developed, no distress - Eyes PERRL - ENT normal pinna - Neck no masses - Respiratory normal expansion - Abdomen Abdomen: soft, non tender Bariatric Assessment & Plan Plan: The patient is doing well from her sleeve gastrectomy. She will follow-up in 2 weeks. She will continue the graduated diet. Bariatric Checklist Checklist: Plan: Checklist: EGD: 1. Hiatal hernia: 2. H. Pylori: HgbA1c: Vitamin D: Smoking: Current every day smoker Primary care physician referral: Lux Bedolla ([place]) Psychiatry clearance: Cardiology clearance: Sleep study: Diet journal: VTE risk score: VTE risk level: Rehab needs at discharge:
== END | disposition home or self-care (01) ==
LOC: BARWHC3 13:03
PROVIDERS: ATTEND Surgery
DX: Z09 Encounter for follow-up examination after completed treatment for conditions other than malignant neoplasm (principal); K21.9 Gastro-esophageal reflux disease without esophagitis; E66.01 Morbid (severe) obesity due to excess calories; F17.200 Nicotine dependence, unspecified, uncomplicated; Z98.890 Other specified postprocedural states; Z98.84 Bariatric surgery status; Z68.35 Body mass index [BMI] 35.0-35.9, adult
CPT/HCPCS: 97803; 99211

== ENCOUNTER → 2018-03-27 | Outpatient (CLI) | payer BC ==
--- NOTE | 2018-03-27 15:56 | P.HPBAR ---
Bariatric H&P - History & Physicial H&P Date: 03/27/18 History & Physicial: Visit/CC: Patient initial contact: Initial weight: 11.34 kg Initial weight in pounds: Height: Initial BMI: Last weight: Current weight: 220 Current weight in pounds: Current BMI: [place] body weight (based on NIH guidelines): Excess body weight loss: The patient is a 38 year-old F who presents for Bariatric Assessment. Patient resents today for sleeve gastrectomy follow-up. She's had some mild GERD. Past Medical History Past Medical History: GERD/Reflux History of Any Multi-Drug Resistant Organisms: MRSA Year Discovered:: unknown MDRO Source:: lap band port site Past Surgical History: Bariatric Surgery, Orthopedic Surgery Additional Past Surgical History / Comment(s): right foot surgery, lap band 2003 (removed 03-03-18 and revised to gastric sleeve) panniculectomy 2008 Past Anesthesia/Blood Transfusion Reactions: No Reported Reaction Additional Past Anesthesia/Blood Transfusion Reaction / Comm: No transfusion to date Past Psychological History: No Psychological Hx Reported Smoking Status: Current every day smoker Past Alcohol Use History: None Reported Additional Past Alcohol Use History / Comment(s): 1/2 ppd x 20 years Past Drug Use History: None Reported - Past Family History Mother Family Medical History: No Reported History Surgical - Exam - General well developed, no distress - Eyes PERRL - ENT normal pinna - Neck no masses - Respiratory normal expansion - Abdomen Abdomen: soft, non tender Bariatric Assessment & Plan Plan: Patient is doing well. She status post sleeve gastrectomy. Her GERD symptoms are minimal observed. She'll follow-up in one month. Bariatric Checklist Checklist: Plan: Checklist: EGD: 1. Hiatal hernia: 2. H. Pylori: HgbA1c: Vitamin D: Smoking: Current every day smoker Primary care physician referral: Lux Bedolla ([place]) Psychiatry clearance: Cardiology clearance: Sleep study: Diet journal: VTE risk score: VTE risk level: Rehab needs at discharge:
[2018-03-27 16:17] VITALS: BMI 34.5
[2018-03-29 11:16] VITALS: BP 104/71; PULSE 86; RESP 16; TEMP 98.4
== END ==
LOC: BARWHC3 15:40
PROVIDERS: ATTEND Surgery
DX: Z09 Encounter for follow-up examination after completed treatment for conditions other than malignant neoplasm (principal); K21.9 Gastro-esophageal reflux disease without esophagitis; F17.200 Nicotine dependence, unspecified, uncomplicated; Z98.84 Bariatric surgery status; Z86.14 Personal history of Methicillin resistant Staphylococcus aureus infection; Z98.890 Other specified postprocedural states
CPT/HCPCS: 97803

== ENCOUNTER → 2018-04-17 | Outpatient (CLI) | payer BC ==
[2018-04-17 15:01] VITALS: BP 119/75; PULSE 83; RESP 15; TEMP 98.7; BMI 33.3
--- NOTE | 2018-04-17 16:35 | P.HPBAR ---
Bariatric H&P - History & Physicial H&P Date: 04/17/18 History & Physicial: Visit/CC: 2 mos. sleeve f/u Patient initial contact: Initial weight: 11.34 kg Initial weight in pounds: 25.00 Height: 5 ft 7 in Initial BMI: 3.9 Last weight: 220 Current weight: 96.434 kg Current weight in pounds: 212.60 Current BMI: 33.3 [place] body weight (based on NIH guidelines): 61.235 kg Excess body weight loss: The patient is a 38 year-old F who presents for Bariatric Assessment. Patient presents today for sleeve gastrectomy follow-up. She is doing quite well. She' s had some mild GERD. Past Medical History Past Medical History: GERD/Reflux Additional Past Medical History / Comment(s): enlarged thryoid-no rx, occ heartburn, History of Any Multi-Drug Resistant Organisms: MRSA Year Discovered:: unknown MDRO Source:: lap band port site Past Surgical History: Bariatric Surgery, Orthopedic Surgery Additional Past Surgical History / Comment(s): right foot surgery, lap band 2003 (removed 03-03-18 and revised to gastric sleeve) panniculectomy 2008 Past Anesthesia/Blood Transfusion Reactions: No Reported Reaction Additional Past Anesthesia/Blood Transfusion Reaction / Comm: No transfusion to date Past Psychological History: No Psychological Hx Reported Smoking Status: Current every day smoker Past Alcohol Use History: None Reported Additional Past Alcohol Use History / Comment(s): 1/2 ppd x 20 years Past Drug Use History: None Reported - Past Family History Mother Family Medical History: No Reported History Surgical - Exam Vital Signs Temp Pulse Resp BP 98.7 F 83 15 119/75 04/17/18 14:58 04/17/18 14:58 04/17/18 14:58 04/17/18 14:58 - General well developed, no distress - Eyes PERRL - Abdomen Abdomen: soft, non tender Bariatric Assessment & Plan Plan: Patient is status post sleeve yesterday. She's doing quite well. Her GERD is minimal she'll continue omeprazole. She'll follow-up in one month. Bariatric Checklist Checklist: Plan: Checklist: EGD: 1. Hiatal hernia: 2. H. Pylori: HgbA1c: Vitamin D: Smoking: Current every day smoker Primary care physician referral: Lux Bedolla ([place]) Psychiatry clearance: Cardiology clearance: Sleep study: Diet journal: VTE risk score: VTE risk level: Rehab needs at discharge:
== END | disposition home or self-care (01) ==
LOC: BARWHC3 13:40
PROVIDERS: ATTEND Surgery
DX: Z48.815 Encounter for surgical aftercare following surgery on the digestive system (principal); K21.9 Gastro-esophageal reflux disease without esophagitis; F17.200 Nicotine dependence, unspecified, uncomplicated; Z79.899 Other long term (current) drug therapy; Z98.84 Bariatric surgery status
CPT/HCPCS: 99211

== ENCOUNTER → 2018-06-12 | Outpatient (CLI) | payer BC ==
[2018-06-12 14:58] VITALS: BMI 31.2
[2018-06-12 15:04] VITALS: BP 119/75; PULSE 93; RESP 16; TEMP 98.3
--- NOTE | 2018-06-12 15:14 | P.HPBAR ---
Bariatric H&P - History & Physicial H&P Date: 06/12/18 History & Physicial: Visit/CC: sleeve follow-up Patient initial contact: Initial weight: 11.34 kg Initial weight in pounds: 25.00 Height: 5 ft 7 in Initial BMI: 3.9 Last weight: Current weight: 90.446 kg Current weight in pounds: 199.40 Current BMI: 31.2 [place] body weight (based on NIH guidelines): 61.235 kg Excess body weight loss: The patient is a 38 year-old F who presents for Bariatric Assessment. Patient presents today for sleeve gastrectomy follow up Past Medical History Past Medical History: GERD/Reflux Additional Past Medical History / Comment(s): enlarged thryoid-no rx, occ heartburn, History of Any Multi-Drug Resistant Organisms: MRSA Year Discovered:: unknown MDRO Source:: lap band port site Past Surgical History: Bariatric Surgery, Orthopedic Surgery Additional Past Surgical History / Comment(s): right foot surgery, lap band 2003 (removed 03-03-18 and revised to gastric sleeve) panniculectomy 2008 Past Anesthesia/Blood Transfusion Reactions: No Reported Reaction Additional Past Anesthesia/Blood Transfusion Reaction / Comm: No transfusion to date Smoking Status: Current every day smoker - Past Family History Mother Family Medical History: No Reported History Surgical - Exam Vital Signs Temp Pulse Resp BP 98.3 F 93 16 119/75 06/12/18 15:02 06/12/18 15:02 06/12/18 15:02 06/12/18 15:02 - General well developed - Eyes PERRL - ENT normal pinna - Neck no masses - Respiratory normal expansion - Cardiovascular Rhythm: regular - Abdomen Abdomen: soft, non tender Bariatric Assessment & Plan Plan: Status post sleeve history. The patient did well. She's had minimal GERD symptoms. This will be observed. She'll follow-up in 4 weeks. Bariatric Checklist Checklist: Plan: Checklist: EGD: 1. Hiatal hernia: 2. H. Pylori: HgbA1c: Vitamin D: Smoking: Current every day smoker Primary care physician referral: Lux Bedolla ([place]) Psychiatry clearance: Cardiology clearance: Sleep study: Diet journal: VTE risk score: VTE risk level: Rehab needs at discharge:
== END | disposition home or self-care (01) ==
LOC: BARWHC3 14:15
PROVIDERS: ATTEND Surgery
DX: Z09 Encounter for follow-up examination after completed treatment for conditions other than malignant neoplasm (principal); K21.9 Gastro-esophageal reflux disease without esophagitis; E44.0 Moderate protein-calorie malnutrition; E55.9 Vitamin D deficiency, unspecified; E66.01 Morbid (severe) obesity due to excess calories; F17.200 Nicotine dependence, unspecified, uncomplicated; Z98.84 Bariatric surgery status; Z98.890 Other specified postprocedural states; Z68.31 Body mass index [BMI] 31.0-31.9, adult
CPT/HCPCS: 97803; 99211

== ENCOUNTER → 2018-08-07 | Outpatient (CLI) | payer BC ==
[2018-08-07 14:46] VITALS: BP 125/77; PULSE 77; TEMP 99; BMI 29.9
--- NOTE | 2018-08-14 15:02 | P.HPBAR ---
Bariatric H&P - History & Physicial H&P Date: 08/07/18 History & Physicial: Visit/CC: six month follow up Patient initial contact: Initial weight: 11.34 kg Initial weight in pounds: 25.00 Height: 5 ft 7 in Initial BMI: 3.9 Last weight: 199 Current weight: 86.636 kg Current weight in pounds: 191.00 Current BMI: 29.9 [place] body weight (based on NIH guidelines): 61.235 kg Excess body weight loss: The patient is a 38 year-old F who presents for Bariatric Assessment. Patient presents for follow-up. She has lost 8 pounds her last visit. She has some mild complaints of GERD. Past Medical History Past Medical History: GERD/Reflux Additional Past Medical History / Comment(s): enlarged thryoid-no rx, occ heartburn, History of Any Multi-Drug Resistant Organisms: MRSA Year Discovered:: unknown MDRO Source:: lap band port site Past Surgical History: Bariatric Surgery, Orthopedic Surgery Additional Past Surgical History / Comment(s): right foot surgery, lap band 2003 (removed 03-03-18 and revised to gastric sleeve) panniculectomy 2008 Past Anesthesia/Blood Transfusion Reactions: No Reported Reaction Additional Past Anesthesia/Blood Transfusion Reaction / Comm: No transfusion to date Past Psychological History: No Psychological Hx Reported Smoking Status: Current every day smoker Past Alcohol Use History: None Reported Additional Past Alcohol Use History / Comment(s): 1/2 ppd x 20 years Past Drug Use History: None Reported - Past Family History Mother Family Medical History: No Reported History Surgical - Exam Vital Signs Temp Pulse BP 99 F 77 125/77 08/07/18 14:43 08/07/18 14:43 08/07/18 14:43 - General well developed, no distress - Eyes PERRL - ENT normal pinna, normal nares - Neck no masses - Respiratory normal expansion - Abdomen Abdomen: soft, non tender Bariatric Assessment & Plan Plan: Status post sleeve gastrectomy. Patient is doing excellent. She's had good weight loss. Her GERD is minimal will be observed. She'll follow-up in 2 months. Bariatric Checklist Checklist: Plan: Checklist: EGD: 1. Hiatal hernia: 2. H. Pylori: HgbA1c: Vitamin D: Smoking: Current every day smoker Primary care physician referral: Lux Bedolla ([place]) Psychiatry clearance: Cardiology clearance: Sleep study: Diet journal: VTE risk score: VTE risk level: Rehab needs at discharge:
== END ==
LOC: BARWHC3 13:37
PROVIDERS: ATTEND Surgery
DX: Z48.815 Encounter for surgical aftercare following surgery on the digestive system (principal); K21.9 Gastro-esophageal reflux disease without esophagitis; F17.200 Nicotine dependence, unspecified, uncomplicated; Z98.84 Bariatric surgery status
CPT/HCPCS: 99211

== ENCOUNTER → 2018-10-16 | Outpatient (CLI) | payer BC ==
[2018-10-16 13:47] VITALS: BP 125/78; PULSE 87; RESP 16; TEMP 98.4; BMI 27.9
--- NOTE | 2018-10-16 14:05 | P.HPBAR ---
Bariatric H&P - History & Physicial H&P Date: 10/16/18 History & Physicial: Visit/CC: sleeve follow-up Patient initial contact: Initial weight: 11.34 kg Initial weight in pounds: 25.00 Height: 5 ft 7 in Initial BMI: 3.9 Last weight: Current weight: 80.995 kg Current weight in pounds: 178.56 Current BMI: 27.9 [place] body weight (based on NIH guidelines): 61.235 kg Excess body weight loss: The patient is a 38 year-old F who presents for Bariatric Assessment. The patient presents today for sleeve gastrectomy fall. She states her GERD has improved. She's had excellent weight loss. She is less than 13 pounds since her last visit. Past Medical History Past Medical History: GERD/Reflux Additional Past Medical History / Comment(s): enlarged thryoid-no rx, occ heartburn, History of Any Multi-Drug Resistant Organisms: MRSA Year Discovered:: unknown MDRO Source:: lap band port site Past Surgical History: Bariatric Surgery, Orthopedic Surgery Additional Past Surgical History / Comment(s): right foot surgery, lap band 2003 (removed 03-03-18 and revised to gastric sleeve) panniculectomy 2008 Past Anesthesia/Blood Transfusion Reactions: No Reported Reaction Additional Past Anesthesia/Blood Transfusion Reaction / Comm: No transfusion to date Past Psychological History: No Psychological Hx Reported Smoking Status: Current every day smoker Past Alcohol Use History: None Reported Additional Past Alcohol Use History / Comment(s): 1/2 ppd x 20 years Past Drug Use History: None Reported - Past Family History Mother Family Medical History: No Reported History Surgical - Exam Vital Signs Temp Pulse Resp BP 98.4 F 87 16 125/78 10/16/18 13:45 10/16/18 13:45 10/16/18 13:45 10/16/18 13:45 - General well developed, no distress - Eyes PERRL - ENT normal pinna - Neck no masses - Respiratory normal expansion - Cardiovascular Rhythm: regular - Abdomen Abdomen: soft, non tender Bariatric Assessment & Plan Plan: That is mostly yesterday. Patient is doing quite well. Her GERD has improved. She'll follow-up in 2 months. Bariatric Checklist Checklist: Plan: Checklist: EGD: 1. Hiatal hernia: 2. H. Pylori: HgbA1c: Vitamin D: Smoking: Current every day smoker Primary care physician referral: Lux Bedolla ([place]) Psychiatry clearance: Cardiology clearance: Sleep study: Diet journal: VTE risk score: VTE risk level: Rehab needs at discharge:
== END ==
LOC: BARWHC3 13:26
PROVIDERS: ATTEND Surgery
DX: Z48.815 Encounter for surgical aftercare following surgery on the digestive system (principal); E66.01 Morbid (severe) obesity due to excess calories; F17.200 Nicotine dependence, unspecified, uncomplicated; K21.9 Gastro-esophageal reflux disease without esophagitis; Z98.84 Bariatric surgery status; Z68.27 Body mass index [BMI] 27.0-27.9, adult
CPT/HCPCS: 97803; 99211

== ENCOUNTER → 2019-02-19 | Outpatient (CLI) | payer BC ==
[2019-02-19 16:38] VITALS: BP 109/72; PULSE 81; RESP 16; TEMP 98.2; BMI 26.3
--- NOTE | 2019-02-23 11:23 | P.HPBAR ---
Bariatric H&P - History & Physicial H&P Date: 02/19/19 History & Physicial: Visit/CC: sleeve 1 year follow-up Patient initial contact: Initial weight: 11.34 kg Initial weight in pounds: 25.00 Height: 5 ft 7 in Initial BMI: 3.9 Last weight: Current weight: 76.204 kg Current weight in pounds: 168.00 Current BMI: 26.3 [place] body weight (based on NIH guidelines): 61.235 kg Excess body weight loss: The patient is a 39 year-old F who presents for Bariatric Assessment. Patient presents today for sleeve gastrectomy follow-up. She is doing quite well. She lost another 10 pounds since her last visit. She's had some mild GERD. Past Medical History Past Medical History: GERD/Reflux Additional Past Medical History / Comment(s): enlarged thryoid-no rx, occ heartburn, History of Any Multi-Drug Resistant Organisms: None Reported, MRSA Year Discovered:: unknown MDRO Source:: lap band port site Past Surgical History: Bariatric Surgery, Orthopedic Surgery Additional Past Surgical History / Comment(s): right foot surgery, lap band 2003 (removed 03-03-18 and revised to gastric sleeve) panniculectomy 2008 Past Anesthesia/Blood Transfusion Reactions: No Reported Reaction Additional Past Anesthesia/Blood Transfusion Reaction / Comm: No transfusion to date Past Psychological History: No Psychological Hx Reported Smoking Status: Current every day smoker Past Alcohol Use History: None Reported Additional Past Alcohol Use History / Comment(s): 1/2 ppd x 20 years Past Drug Use History: None Reported - Past Family History Mother Family Medical History: No Reported History Surgical - Exam Vital Signs Temp Pulse Resp BP 98.2 F 81 16 109/72 02/19/19 16:37 02/19/19 16:37 02/19/19 16:37 02/19/19 16:37 - General well developed, no distress - Abdomen Abdomen: soft, non tender Bariatric Assessment & Plan Plan: Status post sleeve yesterday. Patient is doing quite well. Her GERD is minimal will be observed. She'll follow-up in 12 weeks.. Bariatric Checklist Checklist: Plan: Checklist: EGD: 1. Hiatal hernia: 2. H. Pylori: HgbA1c: Vitamin D: Smoking: Current every day smoker Primary care physician referral: Lux Bedolla ([place]) Psychiatry clearance: Cardiology clearance: Sleep study: Diet journal: VTE risk score: VTE risk level: Rehab needs at discharge:
== END | disposition home or self-care (01) ==
LOC: BARWHC3 15:37
PROVIDERS: ATTEND Surgery
DX: Z48.815 Encounter for surgical aftercare following surgery on the digestive system (principal); K21.9 Gastro-esophageal reflux disease without esophagitis; F17.200 Nicotine dependence, unspecified, uncomplicated; Z98.84 Bariatric surgery status
CPT/HCPCS: 99211